=== PATIENT | female | born 1940 | race Caucasian/White ===

== ENCOUNTER → 2016-11-06 | Outpatient (CLI) | payer MEDICARE, BC ==
[2015-12-29 11:05] VITALS: BP 109/67
[~2016-11-06] MED LIST: ALPR1TAB PO; AMIO200T2 PO; BUPIVACAINE MPF 0.5% 10 ML VIAL for KCIC. IJ ONE; CYCL10TA2 PO; DABI150C PO; DILT180C29 PO; DULO60CA6 PO; FLUT9.9S NS; HYDR-2666 PO; IOHEXOL 300 MG/ML 10ML VIAL. INT ART ONE; LIDO700A4 TP; LIDOCAINE 1% Multi-Dose 20 ML VIAL. ID ONE; MAGN250T PO; METO25TA9 PO; PRAV40TA2 PO; ROPI1TAB PO; SIMV20TA3 PO; TRAM50TA PO; methylPREDNISolone ACETATE 40 MG/ML VIAL. INT ART ONE
--- NOTE | 2016-11-06 11:29 | KCIC ---
PROCEDURE Right hip injection HISTORY Chronic right hip pain getting worse COMPARISON None TECHNIQUE Patient was informed of the risks to include pain, infection, bleeding, allergic reaction, and blood vessel or nerve injury. All questions were answered. Patient signed a written consent form for a right hip injection for pain therapy. External skin site overlying the right hip was prepped and draped in the usual sterile fashion. Betadine was utilized for cleansing solution. 1 percent lidocaine was utilized for local anesthesia to the depth of the right femoral neck. 22 gauge spinal needle was advanced to the margin the right femoral neck. A solution containing 4 cc lidocaine, 4 cc Omnipaque 300, 80 milligrams Depo-Medrol, 4 cc Marcaine were injected during fluoroscopic visualization. Needle was removed. There was hemostasis at site of puncture. Bandage was applied. There were no immediate complications. Fluoroscopy time: 19 seconds, 1 fluoroscopic image IMPRESSION Technically successful right hip injection for pain therapy without immediate complication. Electronically signed by: Miguel Shipman MD (November 06, 2016 11:28:21)
== END | disposition home or self-care (01) ==
LOC: KCIC 09:55
PROVIDERS: ATTEND Orthopaedic Surgery Sports Medicine
DX: M25.551 Pain in right hip (principal); G89.29 Other chronic pain
CPT/HCPCS: 20610; 77002; J1030; Q9967

== ENCOUNTER → 2016-12-13 | Outpatient (CLI) | payer MEDICARE, BC ==
[2015-12-29 11:05] VITALS: BP 109/67
[~2016-12-13] MED LIST changes: -BUPIVACAINE MPF 0.5% 10 ML VIAL for KCIC. IJ ONE; -HYDR-2666 PO; +HYDR-2758 PO; -IOHEXOL 300 MG/ML 10ML VIAL. INT ART ONE; -LIDOCAINE 1% Multi-Dose 20 ML VIAL. ID ONE; -methylPREDNISolone ACETATE 40 MG/ML VIAL. INT ART ONE
--- NOTE | 2016-12-13 12:15 | KCIC ---
MRI Lumbar Spine without contrast History: Low back pain, right hip and groin pain for about one year Technique: Multiplanar, multi sequential noncontrast MR imaging was performed of the lumbar spine. Contrast: None Comparison: December 04, 2013 Findings: There is some motion degradation. There is again grade 1 anterior spondylolisthesis at L5-S1, somewhat greater degree of mild grade 1 anterior spondylolisthesis L4-5. There is negligible posterior subluxation L1 relative to L2. Lumbar vertebral body stature is preserved. Conus terminates at the inferior aspect L1. There is again mild degenerative disc disease at L5-S1, mild disc desiccation at more superior levels. There is mild lumbar levoscoliosis. There is right renal pelviectasis or mild hydronephrosis. L1-L2: Normal foramina and spinal canal are adequate. There is mild buckling of the ligamentum flavum and facet degenerative change. L2-L3: There is mild buckling of the ligamentum flavum. Neural foramina and spinal canal are adequate. There is anterior annular tear. L3-L4: Spinal canal and neural foramina are adequate. L4-L5: There is moderate to severe right and mild left facet hypertrophic change. There is mild buckling of the ligamentum flavum. Neural foramina are adequate. There is mild narrowing of the far lateral recesses bilaterally. L5-S1: There is severe facet degenerative change and mild buckling of the ligamentum flavum. There is mild partial uncovering of the posterior aspect of the disc due to spondylolisthesis. Neural foramina are adequate. Spinal canal is overall adequate. Impression: 1. There is no significant lumbar spinal stenosis, mild narrowing of the far lateral recesses bilaterally at L4-5. 2. There is multilevel facet degenerative change. There is again grade 1 anterior spondylolisthesis at L5-S1, negligible anterior spondylolisthesis at L4-5, also negligible posterior subluxation of L1 relative to L2. 3. There is mild L5-S1 degenerative disc disease. 4. There is right renal pelviectasis or mild hydronephrosis. Electronically signed by: Atul Shipman MD (12/13/2016 12:12 PM)
== END | disposition home or self-care (01) ==
LOC: KCIC MRI 11:18
PROVIDERS: ATTEND Physician Assistant Medical
DX: M51.37 Other intervertebral disc degeneration, lumbosacral region (principal); M43.17 Spondylolisthesis, lumbosacral region
CPT/HCPCS: 72148

== ENCOUNTER → 2020-01-20 | Outpatient (CLI) | payer MEDICARE, BC ==
[2015-12-29 11:05] VITALS: BP 109/67
[~2020-01-20] MED LIST changes: -AMIO200T2 PO; +AMIO200T4 PO; -HYDR-2758 PO; +HYDR-2761 PO; -MAGN250T PO; +MAGN250T2 PO; +METO-239 PO; -METO25TA9 PO; +SIMV20TA18 PO; -SIMV20TA3 PO
[2020-01-20 13:57] LABS: BASO % 1 % (0-3); EOS % 2 % (0-3)
[2020-01-20 14:19] LABS: MEAN CORPUSCULAR HEMOGLOBIN 36 pg (25-35); WHITE BLOOD COUNT 17.7 x10^3/uL (4.0-11.0)
[2020-01-20 14:22] LABS: HEMATOCRIT 26.1 % (36.0-47.0); HEMOGLOBIN 8.9 g/dL (12.0-15.5); MEAN CORPUSCULAR VOLUME 104 fL (79-100)
[2020-01-20 14:23] LABS: LYMPH # 7.7 x10^3/uL (1.0-4.8); LYMPH % 43 % (24-48); MEAN CORPUSCULAR HGB CONC 34 g/dL (31-37); MONO % 8 % (0-9); NEUT % 45 % (31-73); PLATELET COUNT 90 x10^3/uL (140-400); RED CELL DISTRIBUTION WIDTH 14.3 % (11.5-14.5)
[2020-01-20 14:24] LABS: BASO # 0.2 x10^3/uL (0.0-0.2); CALCIUM 9.3 mg/dL (8.5-10.1); EOS # 0.5 x10^3/uL (0.0-0.7); GFR 53.1; MONO # 1.4 x10^3/uL (0.0-1.1)
[2020-01-20 14:31] LABS: ALBUMIN/GLOBULIN RATIO 1.5 (1.0-1.7); TOTAL BILIRUBIN 2.3 mg/dL (0.2-1.0); TOTAL PROTEIN 6.7 g/dL (6.4-8.2); URIC ACID 4.2 mg/dL (2.6-6.0)
== END | disposition home or self-care (01) ==
LOC: ONCLAB 09:21
PROVIDERS: ATTEND Internal Medicine Hematology & Oncology
DX: C85.80 Other specified types of non-Hodgkin lymphoma, unspecified site (principal)
CPT/HCPCS: 36415; 80053; 83615; 84550; 85025; 86704; 86705; 86709; 86803; 87340

== ENCOUNTER → 2020-02-13 | Outpatient (CLI) | payer MEDICARE, BC ==
[2015-12-29 11:05] VITALS: BP 109/67
[~2020-02-13] MED LIST changes: +APIX2.5T PO; +ARIP10TA9 PO; +CALC-31 PO; +CYAN100031 PO; +DILT120C99 PO; +FAMO20TA5 PO; +MULT-132 PO; +OMEG1CAP38 PO; +PRAV20TA2 PO
--- NOTE | 2020-02-13 17:57 | RAD ---
EXAM: PET W CT SKULL TO MIDTHIGH EXAM DATE: 02/13/2020 INDICATION: Restage lymphoma. RADIOPHARMACEUTICAL: 13.79 mCi of F-18 Fluorodeoxyglucose (FDG) I.V. via the right antecubital fossa. TECHNIQUE: Patient weight: 103 pounds. Following at least four-hour fasting, the patient's blood glucose was 116 mg/dl. Approximately 1 hour after administration of FDG, overlapping emission scanning was performed from the orbital meatal line through the pelvis. A low-dose CT was performed for attenuation correction purposes and anatomic localization. Fused images of PET and CT were reviewed. Any standardized uptake values (SUV) reported are maximum values within a volume region of interest, expressed in gm/ml. COMPARISON: Noncontrast abdomen pelvis CT of 11/13/2019 FINDINGS: PET: No abnormal FDG uptake. Background mediastinal activity is 2.35 max SUV Background hepatic activity is 2.[address]: Head and neck shows no adenopathy or mass. Chest shows no adenopathy by size criteria and no mass. The heart is moderately enlarged and the lungs show mild centrilobular pattern emphysema. No pleural effusion. Abdomen and pelvis shows moderate stool throughout the large bowel, abdominal aortic calcifications without aneurysmal dilation, scattered colonic diverticuli without findings of bowel inflammation, obstruction or perforation. Musculoskeletal system shows degenerative changes in the hips and spine, old healed fracture in the sternal body and bilateral chronic pars defects at L5-S1 with grade 1 anterolisthesis at the lumbosacral junction. No aggressive appearing osseous lesions. IMPRESSION: No evidence of FDG avid lymphoma in the included field of view. Electronically signed by: Horace Valderrama MD (02/13/2020 5:54 PM) [id number]
== END ==
LOC: PETSC 08:33
PROVIDERS: ATTEND Internal Medicine Hematology & Oncology
DX: C83.38 Diffuse large B-cell lymphoma, lymph nodes of multiple sites (principal); C85.80 Other specified types of non-Hodgkin lymphoma, unspecified site
CPT/HCPCS: 78815; A9552

== ENCOUNTER 2020-02-16 08:19 | Outpatient (CLI) | payer MEDICARE, BC ==
[~2020-02-16] VITALS: Ht 157.5 cm; Wt 46.7 kg
[2020-02-16] VITALS (9 sets, daily range): BP systolic 105–171; BP diastolic 50–92
[~2020-02-16 08:19] MED LIST changes: -APIX2.5T PO; -ARIP10TA9 PO; -CALC-31 PO; -CYAN100031 PO; -DILT120C99 PO; -FAMO20TA5 PO; -MULT-132 PO; -OMEG1CAP38 PO; -PRAV20TA2 PO
[2020-02-16 08:41] LABS: BASO # 0.2 x10^3/uL (0.0-0.2); BASO % 1 % (0-3); EOS # 0.6 x10^3/uL (0.0-0.7); EOS % 4 % (0-3); HEMATOCRIT 27.3 % (36.0-47.0); HEMOGLOBIN 10.1 g/dL (12.0-15.5); LYMPH # 8.6 x10^3/uL (1.0-4.8); LYMPH % 54 % (24-48); MEAN CORPUSCULAR HEMOGLOBIN 42 pg (25-35); MEAN CORPUSCULAR HGB CONC 37 g/dL (31-37); MEAN CORPUSCULAR VOLUME 114 fL (79-100); MONO # 1.2 x10^3/uL (0.0-1.1); MONO % 8 % (0-9); NEUT # 5.4 x10^3/uL (1.8-7.7); NEUT % 34 % (31-73); PLATELET COUNT 300 x10^3/uL (140-400); RED CELL DISTRIBUTION WIDTH 13.3 % (11.5-14.5); WHITE BLOOD COUNT 15.9 x10^3/uL (4.0-11.0)
[2020-02-16] MEDS ORDERED: MULT-132 PO (08:43)
[2020-02-16] MEDS ORDERED: OMEG1CAP38 PO (08:43)
[2020-02-16] MEDS ORDERED: PRAV20TA2 PO (08:43)
[2020-02-16] MEDS ORDERED: FAMO20TA5 PO (08:43)
[2020-02-16] MEDS ORDERED: ARIP10TA9 PO (08:43)
[2020-02-16] MEDS ORDERED: DILT120C99 PO (08:43)
[2020-02-16] MEDS ORDERED: CALC-31 PO (08:43)
[2020-02-16] MEDS ORDERED: CYAN100031 PO (08:43)
[2020-02-16] MEDS ORDERED: APIX2.5T PO (08:43)
[2020-02-16 08:58] LABS: PROTHROMBIN TIME PATIENT 12.4 SEC (11.7-14.0)
[2020-02-16] MEDS ORDERED: LIDOCAINE WITH 8.4% SOD BICARB 3 ML DISP.SYRIN. ONE (09:28)
[2020-02-16] MEDS ORDERED: MIDAZOLAM HCL/PF 2 MG/2 ML VIAL. ONE (09:35)
[2020-02-16] MEDS ORDERED: fentaNYL PF VIAL 100 MCG/2 ML VIAL ONE (09:36)
[2020-02-16] MEDS ORDERED: LIDOCAINE WITH 8.4% SOD BICARB 3 ML DISP.SYRIN. IJ ONE (10:00)
[2020-02-16] MEDS ORDERED: MIDAZOLAM HCL/PF 2 MG/2 ML VIAL. IV ONE (10:00)
[2020-02-16] MEDS ORDERED: fentaNYL PF VIAL 100 MCG/2 ML VIAL IV ONE (10:00)
[2020-02-16 11:10] LABS: % EOS 6 % (0-5); % LYMPHS 56 % (24-48); % MONOS 10 % (0-10); % MYELOS 2 % (0-0); % SEGS 26 % (35-66); PLT ESTIMATE ADEQUATE (ADEQUATE)
--- NOTE | 2020-02-16 11:21 | NUR ---
Discharge Note: KYLEE LEYVA Discharge instructions and discharge home medications reviewed with Patient and a copy given. All questions have been answered and understanding verbalized. Dressing remains clean and dry The following instructions and handouts were given: Sedation and bone marrow biopsy Discontinued lines and drains: Peripheral IV intact. Patient discharged to Home or Self Care with Family Member via Wheelchair ROBERTO GORE Addendum: 02/16/20 at 1122 by MARY SIMPSON RN Amended: Links added.
--- NOTE | 2020-02-16 14:57 | RAD ---
CT-guided bone marrow biopsy. 02/16/2020 12:54 PM Indication: LYMPHOMA Discussion: The risks and benefits of the procedure, including but not limited to, bleeding and infection were discussed patient. Informed consent was obtained. The patient was brought to the CT scanner and placed in the prone position. A timeout procedure was performed. General Machinist CT imaging of the pelvis demonstrated left ilium amenable to bone marrow biopsy. The overlying soft tissues were prepped and draped using maximum sterile barrier technique. 1% lidocaine without epinephrine was administered for local anesthesia. Under intermittent CT guidance, an OncControl needle was advanced into the bone marrow of the left iliac crest. 2 Aspirates and 1 core biopsy samples were obtained. Samples were delivered to pathology was present at the time of procedure. The needle was removed and manual pressure held to achieve hemostasis. No immediate complications were identified. The procedure was performed under conscious sedation including continuous cardiopulmonary monitoring via dedicated sedation nurse. Sedation time: 20 minutes Impression: Successful CT-guided bone marrow biopsy of the left iliac crest . PQRS Compliance Statement: One or more of the following individualized dose reduction techniques were utilized for this examination: 1. Automated exposure control 2. Adjustment of the mA and/or kV according to patient size 3. Use of iterative reconstruction technique
== END 2020-02-16 11:15 | disposition home or self-care (01) ==
LOC: INTRAD 08:19
PROVIDERS: ATTEND Internal Medicine Hematology & Oncology
DX: C83.30 Diffuse large B-cell lymphoma, unspecified site (principal); Z88.2 Allergy status to sulfonamides; Z88.0 Allergy status to penicillin; Z88.8 Allergy status to other drugs, medicaments and biological substances; Z79.899 Other long term (current) drug therapy; Z79.01 Long term (current) use of anticoagulants
CPT/HCPCS: 36415; 38222; 77012; 85007; 85025; 85610; 85730; 99152; J2250; J3010; J3490

== ENCOUNTER → 2021-01-27 | Outpatient (CLI) | payer MEDICARE, BC ==
[2020-02-16 11:05] VITALS: BP 133/67
[~2021-01-27] MED LIST changes: -AMIO200T4 PO; +AMIO200T6 PO; +APIX2.5T PO; +ARIP10TA9 PO; +BUPIVACAINE MPF 0.5% 10 ML VIAL. IJ ONE; +CALC-31 PO; +CYAN100031 PO; +DILT120C99 PO; +FAMO20TA5 PO; +IOHEXOL 300 MG/ML 50 ML VIAL. INT ART ONE; +LIDOCAINE 1% Multi-Dose 20 ML VIAL. INJ ONE; +MULT-132 PO; +OMEG1CAP38 PO; +PRAV20TA2 PO; +methylPREDNISolone ACETATE 80 MG/ML VIAL. INJ ONE
--- NOTE | 2021-01-27 09:49 | RAD ---
IR ARTHROCENTESIS ASP/INJ RIGHT History: Pain Technique: Patient was informed of the risks to include pain, infection, bleeding, allergic reaction. All questions were answered. Patient signed a written consent form for right hip injection for pain therapy. Patient was placed in supine position on the fluoroscopy table. The external skin site overl vito right hip was prepped and draped in the usual sterile fashion. Betadine was utilized for cleansi ng solution. 1% lidocaine was utilized for local anesthesia to the depth of the bone. 22-gauge spinal needle was advanced under fluoroscopy to depth of the bone. Small amount contrast was injected confi rming intra-articular location. Mixture of 4 cc anesthetic and 80 mg Depo-Medrol were injected during fluoroscopic visualization. Needle was removed. There were no immediate complications. Bandage was a pplied. Fluoroscopy time 0.4 minutes Fluoroscopic images: 1. Impression: 1. Successful right hip steroid injection. Electronically signed by: Neri Ramos DO (01/27/2021 9:46 AM) [id number]
== END | disposition home or self-care (01) ==
LOC: RAD 08:34
PROVIDERS: ATTEND Orthopaedic Surgery
DX: M16.11 Unilateral primary osteoarthritis, right hip (principal); I48.91 Unspecified atrial fibrillation; E78.00 Pure hypercholesterolemia, unspecified; F41.9 Anxiety disorder, unspecified; F32.9 Major depressive disorder, single episode, unspecified; Z79.899 Other long term (current) drug therapy; Z90.710 Acquired absence of both cervix and uterus; Z98.890 Other specified postprocedural states; Z88.0 Allergy status to penicillin; Z88.1 Allergy status to other antibiotic agents; Z88.2 Allergy status to sulfonamides
CPT/HCPCS: 20610; 77002; J1040; J3490; Q9967